=== PATIENT | female | born 1940 | race Caucasian/White ===

== ENCOUNTER 2021-05-23 05:25 | Day surgery (SDC) | payer MEDICARE, BC ==
[2021-05-16 16:55] LABS: BASOPHILS % (AUTO) 0.5 % (0-1); EOSINOPHILS # (AUTO) 0.1 X10'3 (0-0.9); EOSINOPHILS % (AUTO) 2.3 % (0-6); LYMPHOCYTES # (AUTO) 1.2 X10'3 (1.1-4.8); LYMPHOCYTES % (AUTO) 21.7 % (21-51); MEAN CORPUSCULAR HEMOGLOBIN 31.6 PG (27.0-31.0); MEAN CORPUSCULAR HGB CONC 34.2 g/dL (33.0-36.5); MEAN CORPUSCULAR VOLUME 92.4 FL (78-98); MEAN PLATELET VOLUME 8.3 FL (7.4-10.4); MONOCYTES # (AUTO) 0.4 X10'3 (0-0.9); MONOCYTES % (AUTO) 7.2 % (2-12); NEUTROPHILS # (AUTO) 3.9 X10'3 (1.8-7.7); NEUTROPHILS % (AUTO) 68.3 % (42-75); PRE OP HEMATOCRIT 39.6 % (35.0-45.0); PRE OP HEMOGLOBIN 13.6 g/dL (12.0-16.0); PRE OP PLATELET COUNT 232 X10'3 (140-440); RED BLOOD COUNT 4.29 X10'6 (4.20-5.60); RED CELL DISTRIBUTION WIDTH 14.5 % (11.5-14.5)
[2021-05-16 17:02] LABS: CLARITY,URINE SLIGHTLY CLOUDY (Clear); COLOR,URINE YELLOW (Yellow); GLUCOSE, URINE NEGATIVE (Neg); KETONES,URINE NEGATIVE (Neg); PH,URINE 6.5 (4.8-8.0); PROTEIN,URINE NEGATIVE (Neg); UA COLLECTION TYPE CLN CATCH MIDSTREAM
[2021-05-16 17:03] LABS: LEUKOCYTE ESTERASE ,URINE NEGATIVE (Neg); NITRITES, URINE NEGATIVE (Neg); OCCULT BLOOD,URINE NEGATIVE (Neg); UROBILINOGEN,URINE 0.2 E.U/dL (0.2-1.0)
[2021-05-16 17:07] LABS: BACTERIA,URINE 1+ /HPF (Neg); MUCUS STRANDS FEW /LPF (Neg); RBC,URINE 0-2 /HPF (0-2); SQUAMOUS EPITHELIAL CELL,UR MODERATE /LPF (FEW); WBC,URINE 0-4 /HPF (0-4)
[2021-05-16 17:10] LABS: ALBUMIN 3.3 G/DL (3.4-5.0); ALKALINE PHOSPHATASE 59 IU/L (46-116); BLOOD UREA NITROGEN 18 MG/DL (7-18); BUN/CREATININE RATIO 22.5 (6.6-38.0); CALCIUM 8.9 MG/DL (8.5-10.1); CHLORIDE 107 MMOL/L (99-107); PRE OP ALT 27 U/L (30-65); PRE OP ANION GAP 8 (8-16); PRE OP AST 23 U/L (10-37); PRE OP BILIRUB, TOTAL 0.2 MG/DL (0.0-1.0); PRE OP GLUCOSE 107 MG/DL (70-104); PRE OP SODIUM 144 MMOL/L (135-145); TOTAL PROTEIN 6.6 G/DL (6.4-8.2); eGFR 69 ML/MIN
[2021-05-16 17:18] LABS: PRE OP POTASSIUM 3.6 MMOL/L (3.4-5.1)
[~2021-05-23] VITALS: Ht 157.5 cm; Wt 77.6 kg
[2021-05-23] VITALS (13 sets, daily range): BP systolic 119–148; BP diastolic 55–77
[~2021-05-23 05:25] MED LIST: ALPR0.5T9 PO; BUPR100T7 PO; LEVO100T PO; SUMA100T16 PO; TRIA1TAB3 PO; VENL50TA4 PO; ringers solution, lacted 1,000 ML IV SCH
[2021-05-23] MEDS ORDERED: cefazolin/dext.iso 2gm/50ml 50 ML IV ONE (05:30)
[2021-05-23] MEDS ORDERED: famotidine 20mg tablet PO ONE (05:30)
[2021-05-23] MEDS ORDERED: diazepam 5mg tablet PO ONE (06:30)
[2021-05-23] MEDS ORDERED: bacitracin 15gm ointment TP ONE (06:41)
[2021-05-23] MEDS ORDERED: BUPIVAcaine/PF 2.5 mg/ml (0.25%) 30ml vial ONE (06:41)
[2021-05-23] MEDS ORDERED: diazepam 2mg tablet PO ONE (06:45)
[2021-05-23] MEDS ORDERED: scopolamine 1mg/72 hr patch TD ONE (07:15)
[2021-05-23] MEDS ORDERED: BUPIVAcaine 0.5% inj/PF 30 ML ONE (07:21)
[2021-05-23] MEDS ORDERED: fentaNYL/PF 50MCG/1 ML 2ML syringe ONE ×2 (07:22→07:36)
[2021-05-23] MEDS ORDERED: midazolam 1 mg/ML 2ml injection ONE (07:23)
[2021-05-23] MEDS ORDERED: ketamine 50mg/5ml syringe ONE (07:24)
[2021-05-23] MEDS ORDERED: LIDOcaine 2% (20mg/ml) 5ml vial ONE ×2 (08:08)
[2021-05-23] MEDS ORDERED: propofol inj 20 ML IV ONE (08:08)
[2021-05-23] MEDS ORDERED: ringers solution, lacted 1,000 ML IV SCH (08:10)
[2021-05-23] MEDS ORDERED: HYDROmorphone/PF 0.2 MG/ML SYRINGE IV PRN (08:10)
[2021-05-23] MEDS ORDERED: morphine 2 MG/ML inj. syringe IV PRN (08:10)
[2021-05-23] MEDS ORDERED: ondansetron/PF 4mg/2ml inj IV PRN (08:10)
--- NOTE | 2021-05-23 08:50 | NUR ---
Received from OR via , accompanied by Anesthesiologist and report given by Anesthesiolgist. PATIENT A&OX4, DENIES PAIN, V/S WNL, NEUROVASCULAR CHECKS INTACT, 20G PIV RUE, DRESSING TOE RIGHT FOOT CDI WITH WALKING BOOT.
--- NOTE | 2021-05-23 12:00 | NUR ---
PATIENT A&OX4, DENIES PAIN, V/S WNL, NEUROVASCULAR CHECKS INTACT, 20G PIV RUE D/C, DRESSING TOE RIGHT FOOT CDI WITH WALKING BOOT. I HAVE REVIEWED D/C INSTRUCTIONS WITH PATIENT AND SHE HAS VERBALIZED UNDERSTANDING. PATIENT D/C HOME WITH ALL BELONGINGS AND D/C INSTRUCTIONS AND [facility] GAVE TRANSPORT.
== END 2021-05-23 12:00 | disposition home or self-care (01) ==
LOC: PAS 05:25
PROVIDERS: ATTEND Podiatrist Foot & Ankle Surgery
DX: M20.11 Hallux valgus (acquired), right foot (principal); M20.41 Other hammer toe(s) (acquired), right foot; M24.574 Contracture, right foot; F41.9 Anxiety disorder, unspecified; M19.90 Unspecified osteoarthritis, unspecified site; Z79.899 Other long term (current) drug therapy; Z20.822 Contact with and (suspected) exposure to COVID-19; Z88.8 Allergy status to other drugs, medicaments and biological substances; Z98.890 Other specified postprocedural states; Z90.710 Acquired absence of both cervix and uterus
CPT/HCPCS: 28270; 28285; 28298; 36415; 73620; 76000; 80053; 81001; 82948; 85025; 93005; A6223; C1713; J2001; J2250; J2405; J2704; J3010; J3490; J7120; U0003; U0005; Z7506; Z7508; Z7512; A4618; A6253; A6449; A7000